=== PATIENT | male | born 1980 | race Caucasian/White ===

== ENCOUNTER 2019-02-12 18:44 | Emergency (ER) | payer MEDICAID ==
[2019-02-12 18:44] VITALS: BMI 31.5
[2019-02-12 18:50] VITALS: PULSE 81; TEMP 97.6; O2SAT 97
--- NOTE | 2019-02-12 20:12 | C.PDOC ---
History Of Present Illness 38 year old male with PMHx of HTN presents to the ED complaining of left sided chest pain that began 3 days ago. Associated symptoms include subjective dyspnea. Describes pain as sharp. Denies any known trauma. Denies any nausea, vomiting, fever, chills, palpitations, lightheadedness, headache, or any other symptoms. Time Seen by Provider: 02/12/19 19:46 Chief Complaint (Nursing): Chest Pain History Per: Patient History/Exam Limitations: no limitations Onset/Duration Of Symptoms: Days Current Symptoms Are (Timing): Still Present Quality: Sharp Associated Symptoms: Dyspnea Past Medical History Reviewed: Historical Data, Nursing Documentation, Vital Signs Vital Signs: Last Vital Signs Temp 97.6 F 02/12/19 18:46 Pulse 81 02/12/19 18:46 Resp 18 02/12/19 18:46 BP 126/84 02/12/19 18:46 Pulse Ox 97 02/12/19 18:46 Primary Care Provider: Baldo Meredith - Medical History PMH: No Chronic Diseases Surgical History: No Surg Hx - [facility] Procedures TETANUS TOXOID ADMINIST (09/13/14) Family History: States: No Known Family Hx - Social History Hx Tobacco Use: No Hx Alcohol Use: Yes Hx Substance Use: No - Immunization History Hx Tetanus Toxoid Vaccination: No Hx Influenza Vaccination: No Hx Pneumococcal Vaccination: No Review Of Systems Except As Marked, All Systems Reviewed And Found Negative. Constitutional: Negative for: Fever, Chills Cardiovascular: Positive for: Chest Pain. Negative for: Palpitations, Light Headedness Respiratory: Positive for: Shortness of Breath. Negative for: Cough Gastrointestinal: Negative for: Nausea, Vomiting, Abdominal Pain, Diarrhea Neurological: Negative for: Headache, Dizziness Physical Exam - Physical Exam Appears: Non-toxic, No Acute Distress Skin: Warm, Dry, No Rash Head: Normacephalic Eye(s): bilateral: Normal Inspection, PERRL, EOMI Nose: Normal Oral Mucosa: Moist Neck: Supple Chest: Symmetrical, No Tenderness Cardiovascular: Rhythm Regular, No Murmur Respiratory: Normal Breath Sounds, No Rales, No Rhonchi, No Wheezing Gastrointestinal/Abdominal: Soft, No Tenderness, No Distention, No Guarding, No Rebound Extremity: No Pedal Edema Extremity: Bilateral: Atraumatic, Normal Color And Temperature, Normal ROM Neurological/Psych: Oriented x3, Normal Speech Gait: Steady ED Course And Treatment - Laboratory Results Result Diagrams: 02/12/19 20:24 02/12/19 20:24 ECG: Interpreted By Me, Viewed By Me ECG Rhythm: Sinus Rhythm Interpretation Of ECG: No ST/T wave changes Rate From EC O2 Sat by Pulse Oximetry: 97 (RA) Pulse Ox Interpretation: Normal Medical Decision Making Medical Decision Making: cp ro acs Plan - EKG - CXR - UA - Bloodwork The patient declines to have further medical evaluation and treatment and wishes to leave the Emergency Department. This action is against my medical advice to the patient and with informed refusal. The patient was told that evaluation and treatment are necessary and a full explanation of the rationale was given. The risks of leaving were explained to the patient and include, but are not limited to, worsening of known or currently unknown conditions, permanent disability and from undiagnosed or untreated conditions. Based on my conversations with the patient, the patient has the capacity to make this informed decision and understands the clinical situation and my explanation of the risks of leaving. The patient voluntarily accepts these risks and a signed AMA form documenting our conversation was obtained. The patient was given the opportunity to ask questions and reconsider. The patient was encouraged to return to the Emergency Department at any time for further evaluation. labs neg. cxr no acute disase. requetsed pt be observed to ro acs. pt decline asking for dc. explained extensively of risk. asking for dc. Disposition - Disposition Referrals: Austin Zuluaga MD [Staff Provider] - Disposition: AGAINST MEDICAL ADVICE Disposition Time: 21:00 Condition: UNKNOWN Additional Instructions: you are declining observation retur nto er with worsening. Instructions: Chest Pain, Leaving Against Medical Advice Forms: [facility] (Georgian) - Clinical Impression Clinical Impression: Chest pain - Scribe Statement The provider has reviewed the documentation as recorded by the Scribe Tahmina Marrero All medical record entries made by the Scribe were at my direction and personally dictated by me. I have reviewed the chart and agree that the record accurately reflects my personal performance of the history, physical exam, medical decision making, and the department course for this patient. I have also personally directed, reviewed, and agree with the discharge instructions and disposition.
[2019-02-12 20:29] LABS: BASO % 0.3 % (0.0-2.0); EOS # 0.1 K/uL (0.0-0.7); EOS % 1.1 % (0.0-4.0); HEMOGLOBIN 16.3 g/dL (12.0-18.0); LYMPH # 2.9 K/uL (1.0-4.3); LYMPH % 41.7 % (20.0-40.0); MEAN CELL VOLUME 91.7 fL (80.0-94.0); MEAN CORPUSCULAR HEMOGLOBIN 32.1 pg (27.0-31.0); MEAN PLATELET VOLUME 8.3 fL (7.2-11.7); MONO # 0.9 K/uL (0.0-0.8); MONO % 12.9 % (0.0-10.0); NEUT # 3.1 K/uL (1.8-7.0); NRBC % 0.1 % (0.0-2.0); RBC 5.08 Mil/uL (4.40-5.90); RED CELL DISTRIBUTION WIDTH 12.8 % (11.5-14.5); WHITE BLOOD COUNT 6.9 K/uL (4.8-10.8)
[2019-02-12 20:38] LABS: INR 1.1; PARTIAL THROMBOPLASTIN TIME 33.6 SECONDS (21-34); PROTHROMBIN TIME 11.8 SECONDS (9.7-12.2)
[2019-02-12 20:47] LABS: ALB/GLOB RATIO 1.2 (1.0-2.1); ALT/SGPT 38 U/L (21-72); AST/SGOT 35 U/L (17-59); BLOOD UREA NITROGEN 16 mg/dL (9-20); CALCIUM 10.3 mg/dl (8.6-10.4); GFR NON-AFRICAN AMERICAN > 60
[2019-02-12 20:52] LABS: URINE BILIRUBIN NEGATIVE (NEGATIVE); URINE CLARITY Clear (Clear); URINE COLOR Yellow (YELLOW); URINE GLUCOSE (UA) NORMAL (Normal); URINE LEUKOCYTE ESTERASE NEG Leu/uL (Negative); URINE PROTEIN NEGATIVE (NEGATIVE)
[2019-02-12 21:24] LABS: URINE BLOOD TRACE (NEGATIVE)
[2019-02-12 21:26] VITALS: BP 138/88; RESP 13
--- NOTE | 2019-02-13 07:54 | RAD ---
Date of service: 02/12/2019 HISTORY: chest pain COMPARISON: None available. TECHNIQUE: 1 view obtained. FINDINGS: LUNGS: No active pulmonary disease. PLEURA: No significant pleural effusion identified, no pneumothorax apparent. CARDIOVASCULAR: No aortic atherosclerotic calcification present. Normal cardiac size. No pulmonary vascular congestion. OSSEOUS STRUCTURES: No significant abnormalities. VISUALIZED UPPER ABDOMEN: Normal. OTHER FINDINGS: None. IMPRESSION: No acute cardiopulmonary disease appreciated.
== END 2019-02-12 21:32 | disposition left against medical advice (07) ==
LOC: C.ER 18:44
DX: R07.9 Chest pain, unspecified (principal)